=== PATIENT | female | born 1950 | race Caucasian/White ===

== ENCOUNTER → 2022-09-15 10:28 | Outpatient (CLI) | payer MEDICARE, OTHER, SELFPAY | PROVIDERS: Family Provider Family Medicine; PCP Family Medicine; Referring Provider Family Medicine; Visit Provider Family Medicine | DX: R10.9 Unspecified abdominal pain (principal); R19.7 Diarrhea, unspecified | CPT/HCPCS: 87045; 87177; 87899 ==

== ENCOUNTER 2023-06-28 11:15 | Emergency (ER) | payer MEDICARE, OTHER, SELFPAY ==
[2023-06-28 11:23] VITALS: BP 151/73; PULSE 63; RESP 16; TEMP 36.8; O2SAT 98; BMI 25.1
--- NOTE | 2023-06-28 11:55 | DI.CT.S_ITS ---
PROCEDURE: CT ABDOMEN PELVIS W CON INDICATIONS: epigastric pain; R and L upper quadrant pain TECHNIQUE: After the administration of intravenous contrast, axial sections acquired from the lung bases to the pubic symphysis. Coronal and sagittal reformats were performed. For radiation dose reduction, the following was used: automated exposure control, adjustment of mA and/or kV according to patient size. COMPARISON: Outside Film, CT, CT ABDOMEN RENAL PROTOCOL, 07/30/2022, 9:06. FINDINGS: Image quality: Excellent. Lung bases: Unremarkable. Heart: No significant findings. ABDOMEN: Liver: Unremarkable. Gallbladder: Status post cholecystectomy. Biliary ducts: Unremarkable. Pancreas: Unremarkable. Spleen: Unremarkable. Adrenal Glands: Unremarkable. Kidneys and Ureters: Stable left renal cyst. No hydronephrosis. Subcentimeter left renal angiomyolipoma does not appear significantly changed. Stomach and Bowel: Scattered diverticula are seen in the colon without signs of acute diverticulitis multiple fluid-filled nondilated loops of small bowel are seen throughout the pelvis. Peritoneum: No abnormal intraperitoneal fluid. No free air. Ventral Wall: Tiny fat containing periumbilical hernia. Abdominal Nodes: No retroperitoneal or mesenteric adenopathy by size criteria. Vessels: Aorta and inferior vena cava are normal in size. PELVIS: Pelvic Organs: Unremarkable. Bladder: Unremarkable. Pelvic Nodes: No enlarged lymph nodes. Miscellaneous: No hernias are seen. Bones: Levoconvex curvature of the spine and multilevel degenerative changes. IMPRESSION: 1. Nondilated fluid-filled loops of small bowel in the lower abdomen are nonspecific, but can be seen in the setting of a nonspecific enteritis. No acute inflammatory process is seen in the abdomen or pelvis. 2. Colonic diverticulosis without signs of acute diverticulitis. Approved by: Jassi Gonzalez M.D. on 06/28/2023 at 13:04
[2023-06-28 12:09] LABS: Appearance Urine UA CLEAR; Bilirubin Urine UA NEGATIVE (NEGATIVE); Color Urine UA YELLOW; Glucose Urine UA NEGATIVE (Negative); Ketones Urine UA TRACE (NEGATIVE); Leukocyte Esterase Urine UA NEGATIVE (NEGATIVE); Nitrite Urine UA NEGATIVE (Negative); Occult Blood Urine UA NEGATIVE (Negative); Protein Urine UA NEGATIVE (Negative); Specific Gravity Urine UA 1.025 (1.000-1.035)
[2023-06-28 12:10] LABS: pH Urine UA 6.5 (4.5-8.0)
[2023-06-28] MEDS: FAMOTIDINE 20 MG/2 ML VIAL IV (12:13)
[2023-06-28] MEDS: MAG HYDROX/ALUMINUM/SIMETH SUS 20 ML, LIDOCAINE VISCOUS 2% 15 ML PO (12:13)
[2023-06-28 12:14] LABS: Add Manual Diff / Slide Review NO; Basophils Absolute Auto 100 /uL (0-100); Basophils Percent Auto 1.5 % (0-2); Eosinophils Absolute Auto 100 /uL (0-450); Eosinophils Percent Auto 2.4 % (2-4); Hematocrit 41.9 % (36-46); Hemoglobin 14.4 g/dL (12.0-16.0); Lymphocytes Absolute Auto 2000 /uL (1100-4500); Lymphocytes Percent Auto 37.7 % (25-40); Mean Corpuscular HGB Conc 34.4 % (30-36); Mean Corpuscular Hemoglobin 32.6 PG (26-34); Mean Corpuscular Volume 94.6 fL (80-100); Monocytes Absolute Auto 400 /uL (0-900); Monocytes Percent Auto 8.2 % (3-14); Neutrophils Absolute Auto 2600 /uL (1500-7000); Neutrophils Percent Auto 50.2 % (50-75); Platelet Count 198 X10^3/uL (150-400); Red Blood Cell Count 4.43 X10^6/uL (4.0-5.2); Red Cell Distribution Width 13.4 % (11.6-14.8); White Blood Cell Count 5.2 X10^3/uL (4.5-11.0)
[2023-06-28 12:18] LABS: Bacteria Urine None Seen; Culture Indicated Urine Cult Not Indicated; RBC Urine None Seen (0-5/HPF); Squamous Epithelial Cell Urine 0-1 /HPF (0-5/HPF); WBC Urine None Seen (0-5/HPF)
--- NOTE | 2023-06-28 12:22 | ED_ITS ---
HPI - Abdominal Pain <Rubén Miranda PA-C - Last Filed: 06/28/23 13:40> General Chief Complaint: Abdominal Pain Stated Complaint: sent bt provider, upper abd pain t-8 Time Seen by Provider: 06/28/23 11:32 Source: patient Mode of arrival: Ambulatory History of Present Illness HPI narrative: 73-year-old female with past medical history mixed hyperlipidemia, history of malignant neoplasm of skin, renal cyst, actinic keratosis, vaginal polyp presents to the ED with 8 days of upper abdominal pain. Patient states that her symptoms 1st started a days ago with severe upper abdominal pain in her epigastric and left and right upper quadrants. Patient states that the pain lasted about 6 hours and spontaneously resolved. Since then, patient has not experienced severe pain, however is feeling uncomfortable in her upper abdomen. Patient has not tried any medications including antacids. Patient denies any fevers, chills, chest pain, shortness of breath, nausea, vomiting, dysuria, frequency urinary frequency, urinary urgency, diarrhea, constipation, hematochezia, melena. Patient is status post cholecystectomy. Patient also states that she recently came off 2 doses of antibiotics for UTI, including nitrofurantoin and Bactrim. Patient also had a herpes outbreak from having the UTI and bronchitis. Related Data Home Medications Medication Instructions Recorded Confirmed acyclovir 400 mg tablet 400 mg PO TID PRN 06/30/22 11/18/22 Allergies Allergy/AdvReac Type Severity Reaction Status Date / Time No Known Drug Allergies Allergy Unverified 11/18/22 11:19 Review of Systems <Rubén Miranda PA-C - Last Filed: 06/28/23 13:40> Constitutional Constitutional: Denies chills, Denies fatigue, Denies fever(s), Denies frequent falls, Denies lethargy and Denies weakness Eyes Eyes: Denies change in vision, Denies eye discharge, Denies irritation and Denies loss of vision ENT Ears, Nose, Mouth, and Throat: Denies change in voice, Denies dizziness, Denies neck pain, Denies sore throat and Denies throat swelling Cardiovascular Cardiovascular: Denies chest pain, Denies irregular heart rhythm, Denies lightheadedness, Denies palpitations, Denies dyspnea, Denies dyspnea on exertion and Denies orthopnea Respiratory Respiratory: Denies cough, Denies dyspnea, Denies dyspnea on exertion and Denies wheezing Gastrointestinal Gastrointestinal: Reports abdominal pain, Denies change in bowel habits, Denies diarrhea, Denies nausea and Denies vomiting Musculoskeletal Musculoskeletal: Denies neck pain and Denies numbness Integumentary/Breasts Skin/Breast: Denies pruritus, Denies erythema, Denies rash and Denies wounds Neurologic Neurologic: Denies behavioral changes, Denies confusion, Denies dizziness, Denies frequent falls, Denies loss of vision, Denies numbness and Denies weakness Psychiatric Psychiatric: Denies anxiety, Denies behavioral changes, Denies confusion, Denies depression, Denies homicidal ideation and Denies suicidal ideation Endocrine Endocrine: Denies fatigue, Denies flushing and Denies palpitations Hematologic/Lymphatic Hematologic/Lymphatic: Denies easy bruising Allergic/Immunologic Allergic/Immunologic: Denies urticaria, Denies throat swelling and Denies wheezing Patient History <Rubén Miranda PA-C - Last Filed: 06/28/23 13:40> Medical History Erosion of vulvar labia Vaginal polyp Social History Smoking Status: Former smoker Smoking Status: Former smoker alcohol intake frequency: 0-2 drinks per day Substance Use Type: does not use Exam <Rubén Miranda PA-C - Last Filed: 06/28/23 13:40> Narrative Exam Narrative: Const General:?cooperative, healthy appearing and comfortable [facility] Head:?normal to inspection Ears:?hearing grossly normal bilaterally Nose:?external nose normal Face and sinus:?normal facial exam and sinuses nontender Mouth:?oral mucosae normal Throat:?posterior oropharynx normal Eyes General:?appearance normal, both eyes and all related structures Neck Neck:?normal visual inspection and no lymphadenopathy noted Resp Effort & Inspection:?normal respiratory effort Auscultation:?clear to auscultation bilaterally Cardio Rate:?regular rate Rhythm:?regular rhythm GI Abdomen is soft, nondistended, nontender to palpation. There is no CVA tenderness. Neuro General:?patient alert, patient awake and patient oriented x3 Initial Vital Signs Initial Vital Signs: Vital Signs Temperature 98.2 F 06/28/23 11:23 Pulse Rate 63 06/28/23 11:23 Respiratory Rate 16 06/28/23 11:23 Blood Pressure 151/73 H 06/28/23 11:23 Pulse Oximetry 98 06/28/23 11:23 Oxygen Delivery Method Room Air 06/28/23 11:23 <Leena Blancas MD - Last Filed: 06/28/23 16:31> Initial Vital Signs Initial Vital Signs: Vital Signs Temperature 98.2 F 06/28/23 11:23 Pulse Rate 63 06/28/23 11:23 Respiratory Rate 16 06/28/23 11:23 Blood Pressure 151/73 H 06/28/23 11:23 Pulse Oximetry 98 06/28/23 11:23 Oxygen Delivery Method Room Air 06/28/23 11:23 Course <Rubén Miranda PA-C - Last Filed: 06/28/23 13:40> Orders Ordered: ED Orders 06/28/23 11:30 Urinalysis and Microscopic Stat 06/28/23 11:55 CT abdomen pelvis w con Stat 06/28/23 12:05 CBC Auto Diff [Complete Blood Count AUTO DIFF] Stat CMP [Comprehensive Metabolic Panel] Stat Lipase Stat Troponin & CK Cardiac Panel Stat 06/28/23 12:24 CXR [XR chest 2V] Stat EKG-12 Lead Stat Discontinued Medications Al Hydrox/Mg Hydrox/Simethicone 20 ml/ Lidocaine HCl 15 ml 0 ml PO NOW ONE Stop: 06/28/23 11:56 Last Admin: 06/28/23 12:13 Dose: 45 ml Documented By: ARUN Famotidine (Famotidine 20 Mg/2 Ml Vial) 20 mg IV NOW JARVIS Last Admin: 06/28/23 12:13 Dose: 20 mg Documented By: ARUN Vital Signs Vital signs: Vital Signs - 8 hr 06/28/23 11:23 06/28/23 13:11 Temperature 98.2 F Pulse Rate 63 58 L Respiratory Rate 16 Blood Pressure 151/73 H 152/77 H Pulse Oximetry 98 99 Oxygen Delivery Method Room Air Room Air <Leena Blancas MD - Last Filed: 06/28/23 16:31> Orders Ordered: ED Orders 06/28/23 11:30 Urinalysis and Microscopic Stat 06/28/23 11:55 CT abdomen pelvis w con Stat 06/28/23 12:05 CBC Auto Diff [Complete Blood Count AUTO DIFF] Stat CMP [Comprehensive Metabolic Panel] Stat Lipase Stat Troponin & CK Cardiac Panel Stat 06/28/23 12:24 CXR [XR chest 2V] Stat EKG-12 Lead Stat Discontinued Medications Al Hydrox/Mg Hydrox/Simethicone 20 ml/ Lidocaine HCl 15 ml 0 ml PO NOW ONE Stop: 06/28/23 11:56 Last Admin: 06/28/23 12:13 Dose: 45 ml Documented By: BS Famotidine (Famotidine 20 Mg/2 Ml Vial) 20 mg IV NOW JARVIS Last Admin: 06/28/23 12:13 Dose: 20 mg Documented By: BS Vital Signs Vital signs: Vital Signs - 8 hr 06/28/23 11:23 06/28/23 13:11 Temperature 98.2 F Pulse Rate 63 58 L Respiratory Rate 16 Blood Pressure 151/73 H 152/77 H Pulse Oximetry 98 99 Oxygen Delivery Method Room Air Room Air MDM - Abdominal Pain <Hyma COSME Miranda - Last Filed: 06/28/23 13:40> Lab Data 06/28/23 12:05 06/28/23 12:05 Labs: Lab Results 06/28/23 06/28/23 Range/Units 11:30 12:05 WBC 5.2 (4.5-11.0) X10^3/uL RBC 4.43 (4.0-5.2) X10^6/uL Hgb 14.4 (12.0-16.0) g/dL Hct 41.9 (36-46) % MCV 94.6 (80-100) fL MCH 32.6 (26-34) PG MCHC 34.4 (30-36) % RDW 13.4 (11.6-14.8) % Plt Count 198 (150-400) X10^3/uL Neut % (Auto) 50.2 (50-75) % Lymph % (Auto) 37.7 (25-40) % [place] % (Auto) 8.2 (3-14) % Eos % (Auto) 2.4 (2-4) % Baso % (Auto) 1.5 (0-2) % Neut # (Auto) 2600 (2727-7783) /uL Lymph # (Auto) 2000 (4970-8650) /uL [place] # (Auto) 400 (0-900) /uL Eos # (Auto) 100 (0-450) /uL Baso # (Auto) 100 (0-100) /uL Sodium 138 (137-145) mmol/L Potassium 4.2 (3.4-5.1) mmol/L Chloride 106 (98-107) mmol/L Carbon Dioxide 28 (22-32) mmol/L BUN 16 (7-17) mg/dL Creatinine 0.75 (0.52-1.04) mg/dL Estimated GFR > 60 (>60) mL/min BUN/Creatinine Ratio 21.3 (6-22) Glucose 108 (80-110) mg/dL Calcium 9.5 (8.4-10.2) mg/dL Total Bilirubin 0.6 (0.2-1.3) mg/dL AST 26 (14-36) IU/L ALT 24 (<35) IU/L Alkaline Phosphatase 67 (38-126) U/L Total Creatine Kinase 44 (30-135) U/L Troponin I < 0.012 (0.01-0.034) ng/mL Total Protein 7.9 (6.3-8.2) g/dL Albumin 4.4 (3.5-5.0) g/dL Globulin 3.5 (1.7-4.1) g/dL Albumin/Globulin Ratio 1.3 (1.0-2.8) Lipase 171 (23-300) U/L Urine Color Yellow Urine Appearance Clear Urine pH 6.5 (4.5-8.0) Ur Specific [place] 1.025 (1.000-1.035) Urine Protein Negative (Negative) Urine Glucose (UA) Negative (Negative) g/dL Urine Ketones Trace H (NEGATIVE) Urine Occult Blood Negative (Negative) Urine Nitrate Negative (Negative) Urine Bilirubin Negative (NEGATIVE) Urine Urobilinogen 1.0 (0.2) E.U./dL Ur Leukocyte Esterase Negative (NEGATIVE) Urine RBC None seen (0-5/HPF) Urine WBC None seen (0-5/HPF) Ur Squamous Epith Cells 0-1 /hpf (0-5/HPF) Urine Bacteria None seen (None) Ur Culture Indicated? Cult not indicated MDM Narrative Medical decision making narrative: 73-year-old female with past medical history mixed hyperlipidemia, history of malignant neoplasm of skin, renal cyst, actinic keratosis, vaginal polyp presents to the ED with 8 days of upper abdominal pain. Concern for GERD versus gastritis versus H pylori infection versus PUD versus pancreatitis versus UTI vs ACS versus pneumonia versus other intra-abdominal pathology versus other. Will obtain labs, UA, chest x-ray, EKG, troponin, lipase. While abdominal exam was benign, patient does live in [facility] with [facility] access to [facility], so will obtain CT abdomen pelvis as well. Labs within normal limits. UA without UTI. Urine does show ketones, however patient's last meal was yesterday, starvation ketosis. CT abdomen pelvis shows some nondilated fluid-filled loops of small bowel in the lower abdomen, possible enteritis. No acute inflammatory process is seen. No other abnormalities. Patient did get some relief from the GI cocktail and Pepcid AC. Recommend continuing Pepcid AC and Maalox for the next week. Recommend follow-up with PCP for H pylori testing, further evaluation if symptoms persist. ED return precautions discussed with patient. Patient verbalized understanding. Medical records reviewed: Yes <Leena Blancas MD - Last Filed: 06/28/23 16:31> Lab Data Labs: Lab Results 06/28/23 06/28/23 Range/Units 11:30 12:05 WBC 5.2 (4.5-11.0) X10^3/uL RBC 4.43 (4.0-5.2) X10^6/uL Hgb 14.4 (12.0-16.0) g/dL Hct 41.9 (36-46) % MCV 94.6 (80-100) fL MCH 32.6 (26-34) PG MCHC 34.4 (30-36) % RDW 13.4 (11.6-14.8) % Plt Count 198 (150-400) X10^3/uL Neut % (Auto) 50.2 (50-75) % Lymph % (Auto) 37.7 (25-40) % [place] % (Auto) 8.2 (3-14) % Eos % (Auto) 2.4 (2-4) % Baso % (Auto) 1.5 (0-2) % Neut # (Auto) 2600 (7397-9229) /uL Lymph # (Auto) 2000 (4641-0520) /uL [place] # (Auto) 400 (0-900) /uL Eos # (Auto) 100 (0-450) /uL Baso # (Auto) 100 (0-100) /uL Sodium 138 (137-145) mmol/L Potassium 4.2 (3.4-5.1) mmol/L Chloride 106 (98-107) mmol/L Carbon Dioxide 28 (22-32) mmol/L BUN 16 (7-17) mg/dL Creatinine 0.75 (0.52-1.04) mg/dL Estimated GFR > 60 (>60) mL/min BUN/Creatinine Ratio 21.3 (6-22) Glucose 108 (80-110) mg/dL Calcium 9.5 (8.4-10.2) mg/dL Total Bilirubin 0.6 (0.2-1.3) mg/dL AST 26 (14-36) IU/L ALT 24 (<35) IU/L Alkaline Phosphatase 67 (38-126) U/L Total Creatine Kinase 44 (30-135) U/L Troponin I < 0.012 (0.01-0.034) ng/mL Total Protein 7.9 (6.3-8.2) g/dL Albumin 4.4 (3.5-5.0) g/dL Globulin 3.5 (1.7-4.1) g/dL Albumin/Globulin Ratio 1.3 (1.0-2.8) Lipase 171 (23-300) U/L Urine Color Yellow Urine Appearance Clear Urine pH 6.5 (4.5-8.0) Ur Specific [place] 1.025 (1.000-1.035) Urine Protein Negative (Negative) Urine Glucose (UA) Negative (Negative) g/dL Urine Ketones Trace H (NEGATIVE) Urine Occult Blood Negative (Negative) Urine Nitrate Negative (Negative) Urine Bilirubin Negative (NEGATIVE) Urine Urobilinogen 1.0 (0.2) E.U./dL Ur Leukocyte Esterase Negative (NEGATIVE) Urine RBC None seen (0-5/HPF) Urine WBC None seen (0-5/HPF) Ur Squamous Epith Cells 0-1 /hpf (0-5/HPF) Urine Bacteria None seen (None) Ur Culture Indicated? Cult not indicated Discharge Plan Departure Patient Disposition: Home Clinical Impression: Enteritis Instructions: DI for Enteritis Activity Restrictions/Additional Instructions: You were evaluated in the ED today for abdominal pain. Your labs and urine were normal. Your CT abdomen pelvis shows some enteritis, which could most likely be caused due to food poisoning. Please remain well hydrated. Please follow-up with your PCP so you can be tested for H pylori., and obtain referral to Gastroenterology for further evaluation. Return to the ED if you have worsening symptoms, persistent vomiting, chest pain, shortness of breath. You may continue to take Pepcid AC twice a day for the next 2 weeks. Prescriptions: No Action acyclovir 400 mg tablet 400 mg PO TID PRN Referrals: George Arguello MD [Primary Care Provider] - Stand Alone Forms: Patient Portal/API ED Sign-out <Leena Blancas MD - Last Filed: 06/28/23 16:31> Cosign ED Attending Cosignature Attestation: I did not see this patient. I was available all times for consultation.
--- NOTE | 2023-06-28 12:24 | DI.RAD.S_ITS ---
PROCEDURE: XR CHEST 2V INDICATIONS: chest pain TECHNIQUE: 2 views of the chest were acquired. COMPARISON: None. FINDINGS: Surgical changes and devices: None. Lungs and pleura: Lungs are clear. No pleural effusions or pneumothorax. Mediastinum: Mediastinal contours are normal. Heart size is normal. Bones and chest wall: No suspicious bony abnormalities. Soft tissues appear unremarkable. IMPRESSION: No acute cardiopulmonary abnormality is seen. Approved by: Jassi Gonzalez M.D. on 06/28/2023 at 12:54
[2023-06-28 12:25] LABS: Alanine Aminotransferase 24 IU/L (<35); Albumin 4.4 g/dL (3.5-5.0); Albumin Globulin Ratio 1.3 (1.0-2.8); Alkaline Phosphatase 67 U/L (38-126); Aspartate Aminotransferase 26 IU/L (14-36); BUN Creatinine Ratio 21.3 (6-22); Bilirubin Total 0.6 mg/dL (0.2-1.3); Blood Urea Nitrogen 16 mg/dL (7-17); Calcium 9.5 mg/dL (8.4-10.2); Carbon Dioxide 28 mmol/L (22-32); Chloride 106 mmol/L (98-107); Estimated Glomerular Filt Rate > 60 mL/min (>60); Globulin 3.5 g/dL (1.7-4.1); Glucose 108 mg/dL (80-110); HEMOLYSIS < 15 (0-50); Lipase 171 U/L (23-300); Potassium 4.2 mmol/L (3.4-5.1); Sodium 138 mmol/L (137-145); Total Protein 7.9 g/dL (6.3-8.2)
[2023-06-28 12:36] LABS: Creatine Kinase 44 U/L (30-135)
[2023-06-28 12:48] LABS: Troponin I < 0.012 ng/mL (0.01-0.034)
[2023-06-28 13:11] VITALS: BP 152/77; PULSE 58; O2SAT 99
== END 2023-06-28 13:32 | disposition home or self-care (01) ==
PROVIDERS: Emergency Provider Student in an Organized Health Care Education/Training Program; Family Provider Family Medicine; PCP Family Medicine
DX: K52.9 Noninfective gastroenteritis and colitis, unspecified (principal)
CPT/HCPCS: 36415; 71046; 74177; 80053; 81001; 82550; 83690; 84484; 85025; 93005; 96374; 99284; Q9967

== ENCOUNTER → 2023-07-04 12:15 | Outpatient (CLI) | payer MEDICARE, OTHER, SELFPAY ==
[2023-07-06 10:43] LABS: Interpretation Negative (Negative)
== END ==
PROVIDERS: Family Provider Family Medicine; PCP Family Medicine; Visit Provider Family Medicine
DX: R10.13 Epigastric pain (principal)
CPT/HCPCS: 83013